=== PATIENT | female | born 1990 | race Caucasian/White ===

== ENCOUNTER 2017-10-17 06:25 | Outpatient (CLI) | payer OTHER ==
[~2017-10-17] VITALS: Ht 172.7 cm; Wt 57.6 kg
[~2017-10-17 06:25] MED LIST: METR500T PO; SPRINTEC PO; [UNRECOGNIZED DRUG - OTHER] RC
[2017-10-17] MEDS ORDERED: POST NATAL VITAMIN PO (13:09)
[2017-10-17] MEDS ORDERED: CHOL100045 PO (13:09)
[2017-10-21] MEDS ORDERED: NITR1OIN TP (09:41)
== END 2017-10-17 13:17 ==
LOC: PREOP 06:25
PROVIDERS: ATTEND Surgery
DX: Z01.818 Encounter for other preprocedural examination (principal); K62.5 Hemorrhage of anus and rectum; K62.89 Other specified diseases of anus and rectum; Z80.0 Family history of malignant neoplasm of digestive organs; Z83.71 Family history of colonic polyps

== ENCOUNTER → 2019-02-01 | Outpatient (CLI) | payer OTHER ==
[~2019-02-01] MED LIST changes: +CHOL100045 PO; +NITR1OIN TP; +POST NATAL VITAMIN PO
--- NOTE | 2019-02-01 13:11 | Diagnostic Imaging Report ---
INDICATION: Anatomy scan. TECHNIQUE: Multiple real-time grayscale images were obtained over the gravid uterus. COMPARISON: None FINDINGS: There is a single live fetus in a cephalic presentation. heart rate was recorded 147 beats per minute. The placenta is anterior. Amniotic fluid volume is normal. Cervical length is 3.4 cm. survey demonstrates kidneys, bladder, and stomach to be unremarkable. The brain is unremarkable. There is a four-chambered heart. There is a three-vessel cord with normal insertion. spine is unremarkable. Biometrical measurements are as follows: Biparietal 4.84 cm, age 20 weeks 5 days. Head circumference 17.93 cm, age 20 weeks 3 days. Abdominal circumference 15.60 cm, age 20 weeks 6 days. Femur length 3.56 cm, age 21 weeks 2 days. Sonographic estimate age: 20 weeks 6 days. Sonographic estimated date of delivery: 06/15/2019. Estimated Weight: 386 gm (+/- 56 gm). LMP percentile: 86%. heart rate: 147 beats per minute. number: 1 of 1. IMPRESSION: Single live IUP 20 weeks 6 days gestational age. Estimated date of confinement sonographically is 06/15/2019. Dictated by: Dictated on workstation # [id number]
== END ==
LOC: RAD 10:21
PROVIDERS: ATTEND Obstetrics & Gynecology
DX: Z34.92 Encounter for supervision of normal pregnancy, unspecified, second trimester (principal); Z3A.20 20 weeks gestation of pregnancy
CPT/HCPCS: 76805

== ENCOUNTER 2019-06-19 02:13 | Inpatient (IN) | payer OTHER ==
[~2019-06-19] VITALS: Ht 172.7 cm; Wt 74.5 kg
[2019-06-19] VITALS (14 sets, daily range): BP systolic 113–145; BP diastolic 59–86
--- NOTE | 2019-06-19 02:30 | NUR ---
NORMAN DEAN presented to unit via ambulatory from ED, accompanied by s/o, with c/o CONTRACTIONS,PRESSURE 36 6/7. NORMAN DEAN weighed, gowned, voided, and to bed. EFHM and TOCO applied, VS taken. NORMAN DEAN oriented to bed controls, call light, TV, heat, and A/C controls.
[2019-06-19] MEDS ORDERED: D5 LR IV SOLUTION 1,000 ML IV ONE (02:42)
[2019-06-19] MEDS ORDERED: D5 LR IV SOLUTION 1,000 ML IV SCH (02:57)
[2019-06-19] MEDS ORDERED: OXYTOCIN/NORMAL SALINE 500 ML IV ONE (03:05)
[2019-06-19] MEDS ORDERED: LIDOCAINE/EPI 2% 1:200,00 (XYLOCAINE) 10 ML VIAL ONE (03:05)
[2019-06-19 03:11] LABS: BASOPHILS % (AUTO) 0 % (0-10); EOSINOPHILS # (AUTO) 0.1 10^3/uL (0.0-0.3); EOSINOPHILS % (AUTO) 1 % (0-10); HEMATOCRIT 34 % (35-52); HEMOGLOBIN 11.5 G/DL (11.5-16.0); LYMPHOCYTES # (AUTO) 2.3 X 10^3 (1.0-4.0); LYMPHOCYTES % (AUTO) 25 % (12-44); MEAN CORPUSCULAR HEMOGLOBIN 30 PG (25-34); MEAN CORPUSCULAR HGB CONC 34 G/DL (32-36); MEAN CORPUSCULAR VOLUME 87 FL (80-99); MEAN PLATELET VOLUME 12.2 FL (7.4-10.4); MONOCYTES % (AUTO) 11 % (0-12); NEUTROPHILS # (AUTO) 5.9 X 10^3 (1.8-7.8); NEUTROPHILS % (AUTO) 64 % (42-75); PLATELET COUNT 151 10^3/uL (130-400); WHITE BLOOD COUNT 9.2 10^3/uL (4.3-11.0)
[2019-06-19] MEDS: OXYTOCIN/NORMAL SALINE 500 ML IV SCH ×2 (03:45→04:15)
[2019-06-19] MEDS ORDERED: TETANUS,DIPTH,PERTUSS P/F (BOOSTRIX) 0.5 ML VIAL IM ONE (04:00)
[2019-06-19] MEDS ORDERED: WITCH HAZEL(TUCKS) 40 EA JAR TOP PRN (04:00)
[2019-06-19] MEDS ORDERED: MEASLES,MUMPS,RUBELLA 1 EA INJ SQ ONE (04:00)
[2019-06-19] MEDS ORDERED: BENZOCAINE/MENTHOL (DERMOPLAST) 56 ML CAN TP PRN (04:00)
[2019-06-19] MEDS ORDERED: DIBUCAINE (NUPERCAINAL) 1% OINT 30 GM TOP PRN (04:00)
--- NOTE | 2019-06-19 04:00 | OB Labor & Delivery Record ---
L&D History Date of Service Date of Service: Jun 19, 2019 History Expected Date of Delivery: Jun 20, 2019 Gestational Age in Weeks: 39 Complications Events: Routine care Operative Indications (Cesarea: N/A-Vaginal Delivery Intrapartal Events: None L&D Stage1 Stage One Onset of Labor - Date: Jun 19, 2019 Monitors and Tracing Monitor Mode: External Heart Rate: 130 Station: -1 Correction Variability: Average (6-10) Short Term Variability: Present Presentation: Vertex Vital Signs VS - Last 72 Hours, by Label POS 06/19/19 03:16 Temp 36.4 Pulse 93 Resp 18 Pulse Ox 99 O2 Delivery Room Air Rupture of Membranes Spontaneous Ruture of Membrane: No Amniotic Membrane Rupture Time: 03:15 Amniotic Membrane Fluid Desc.: Clear Vaginal Bleeding Description: Normal Show Progress/Notes patient presented in active labor progressed to complete and + 2 station after AROM performed after admission and patient found to be 8 cm L&D Stage2 Stage Two Stage II Date: Jun 19, 2019 Monitors and Tracing Monitor Mode: External Heart Rate: 130 Monitor Decelerations: Early Siderographist Variability: Average (6-10) Short Term Variability: Present Position: Right Occiput Anterior Presentation: Vertex Cord Descript/Complications Cord Vessel Description: 3 Vessels Delivery Type Delivery Method: Spontaneous Vaginal Anterior Shoulder: Right Episiotomy/Perineal Laceration Laceraction(s)/Extensions: Yes Episiotomy Description: Perineal Extension/lac Degree (describe repair) 2nd degree perineal laceration repaired using 3-0 and 2-0 vicryl suture in usual fashion Condition of Infant Delivery 1 minute Comment: 9 5 minute Comment: 9 Notes Live male weight 8lbs 13 oz Condition of Condition of Infant: Living Exam: No Observed Abnormalities Resuscitation Resuscitation: N/A - Spontaneous Resp L&D Stage3 Stage Three Stage III Date: Jun 19, 2019 Pictocin Pitocin Administration Comment: 30 mu wide open Placenta Delivery Placenta Delivery: Spontaneous Delivery Summary Summary Estimated blood loss (mL): 250 Attending at delivery: Robi Razo DO Condition of Delivery Examined: Cervix Examined, Uterus Explored Post Hemorrhage: No Condition of Mother stable Condition of Infant (s) stable ROBI RAZO DO Jun 19, 2019 04:00 POS
--- NOTE | 2019-06-19 04:03 | History & Physical-OB ---
OB - Chief Complaint & HPI Date/Time Date of Admission: Date of Admission: Jun 19, 2019 at 02:43 Date seen by a Provider: Jun 19, 2019 Time Seen by a Provider: 03:15 Chief Complaint/History OB-Reason for Admission/Chief: Onset of Labor Hx : 3 Hx Para: 1 Expected Date of Delivery: Jun 20, 2019 Gestational Age in Weeks: 39 Gestational Age in Days: 6 Admission Nurse Assessment Rev: Yes Allergies and Home Medications Allergies Coded Allergies: No Known Drug Allergies (Unverified , 02/19/13) Home Medications Cholecalciferol (Vitamin D3) 1,000 Unit Tablet, 1,000 UNIT PO DAILY, (Reported) Nitroglycerin 1 Gm Oint...g., 0.5 GM TP BID APPLY TO ANAL MARGIN TWICE A DAY. Prescribed by: GRACIELA SPAULDING on 10/21/17 0941 [Post Vitamin] , 1 TAB PO DAILY, (Reported) Patient Home Medication List Home Medication List Reviewed: Yes OB - History Hx of Present Care: Yes Ultrasounds: Normal mid trimester US Obstetrical Complications: None Medical Complications: None Delivery History Hx Blood Disorders: No Patient Past Medical History n/a Social History/Family History Recent Infectious Disease Expo: No Alcohol Use: Denies Use Recreational Drug Use: No Immunizations Tetanus Booster (TDap): Unknown Date of Influenza Vaccine: Apr 09, 2019 OB - Admission Exam Physical Exam Vitals: Vital Signs 06/19/19 03:16 Temp 36.4 Pulse 93 Resp 18 Pulse Ox 99 O2 Delivery Room Air HEENT: NCAT Heart: Rhythm Normal Lungs: Clear Abdomen: Gravid Extremities: Normal Reflexes: Normal Cervical Dilatation: 8cm Effacement: 100% Station: -1 Membranes: Intact Heart Rate: 130's Accelerations: Accelerations Present Decelerations: No Decelerations Short Term Variability: Present Filter Cleaner Variability: Average (6-25) Contractions on Admission: < 5 Minutes Apart Intensity: Firm Labs Laboratory Tests Test 06/19/19 02:50 Range/Units White Blood Count 9.2 4.3-11.0 10^3/uL Red Blood Count 3.88 L 4.35-5.85 10^6/uL Hemoglobin 11.5 11.5-16.0 G/DL Hematocrit 34 L 35-52 % Mean Corpuscular Volume 87 80-99 FL Mean Corpuscular Hemoglobin 30 25-34 PG Mean Corpuscular Hemoglobin Concent 34 32-36 G/DL Red Cell Distribution Width 13.0 10.0-14.5 % Platelet Count 151 130-400 10^3/uL Mean Platelet Volume 12.2 H 7.4-10.4 FL Neutrophils (%) (Auto) 64 42-75 % Lymphocytes (%) (Auto) 25 12-44 % Monocytes (%) (Auto) 11 0-12 % Eosinophils (%) (Auto) 1 0-10 % Basophils (%) (Auto) 0 0-10 % Neutrophils # (Auto) 5.9 1.8-7.8 X 10^3 Lymphocytes # (Auto) 2.3 1.0-4.0 X 10^3 Monocytes # (Auto) 1.0 0.0-1.0 X 10^3 Eosinophils # (Auto) 0.1 0.0-0.3 10^3/uL Basophils # (Auto) 0.0 0.0-0.1 10^3/uL OB - Assessment/Plan/Diagnosis Assessment Assessment: active labor Admission Dx 28 yo @ 39.6 Active labor GBS neg Admission Status: Inpatient Order (span 2 midnights) Reason for Inpatient Admission: Active labor at term Plan Plan: Expectant Management ROBI RAZO DO Jun 19, 2019 04:02 POS
--- NOTE | 2019-06-19 05:30 | NUR ---
pad and panties changed. ff1 below. light rubra. gown changed. pt assisted to w'c and tx to room 311. pt ambulated to the bathroom. positive void. pericare completed. pt assisted to bed. orientated to room. info papers discussed. s/o remains at bedside. pt denies any needs at this time.
[2019-06-19] MEDS: IBUPROFEN 600 MG (MOTRIN) TAB PO SCH ×3 (05:32→17:54)
[2019-06-19] MEDS ORDERED: CATHETER FLUSH 10 ML SYR IV SCH ×2 (06:00)
--- NOTE | 2019-06-19 09:30 | NUR ---
DOING WELL. VSS. FF U/2. VAG FLOW LT /MOD RUBRA. VOIDING WELL. CARING FOR INFANT IN ROOM. WELL. S.O. AT BEDSIDE.
[2019-06-19] MEDS: PRENATAL VITAMIN 1 EA TAB PO SCH (10:01)
[2019-06-19] MEDS: FERROUS SULF 325 MG (IRON) TAB PO SCH (10:01)
[2019-06-19] MEDS: DOCUSATE SODIUM 100 MG (COLACE) CAP PO SCH (10:01)
--- NOTE | 2019-06-19 11:00 | NUR ---
WARM BLANKET TO ABDOMEN PRN C/O CRAMPING.
--- NOTE | 2019-06-19 12:00 | NUR ---
CONTINUES TO DO WELL. CARING FOR INFANT IN ROOM WITH FAMILY AT BEDSIDE. GOOD INTERACTION NOTED. ICE PACK FRESHENED PRN.
--- NOTE | 2019-06-19 14:00 | NUR ---
RESTING AT INTERVALS. OFFERS NO COMPLAINTS.
[2019-06-19] MEDS: HYDROcodone/APAP 5 MG/325 MG (LORTAB) TAB PO PRN ×2 (17:55→22:09)
--- NOTE | 2019-06-19 18:00 | NUR ---
PCT TO ROOM AND NOTED PT STANDING UP AND SHAKING. ASSISTED BACK TO BED. VSS. PT STATES SHE FELT COLD AND SHAKEY. STATES POSSIBLY GOT UP OUT OF BED TOO QUICKLY. INSTRUCTED TO SIT AT SIDE OF BED FOR A MINUTE OR SO BEFORE STANDING. PT HAS HAD MANY VISITORS AND HAS BEEN IN BED MOST OF THE SHIFT. ENCOURAGED AMBULATION MORE FREQUENTLY. S.O. REMAINS AT BEDSIDE.
--- NOTE | 2019-06-19 18:45 | NUR ---
ORDERED STORK MEAL. DIETARY CALLED TO CHECK ON ARRIVAL TIME.
[2019-06-20 00:12] VITALS: BP 103/58
[2019-06-20] MEDS: IBUPROFEN 600 MG (MOTRIN) TAB PO SCH ×3 (00:12→11:47)
[2019-06-20 05:56] VITALS: BP 101/61
[2019-06-20 06:26] LABS: BASOPHILS % (AUTO) 0 % (0-10); EOSINOPHILS # (AUTO) 0.2 10^3/uL (0.0-0.3); EOSINOPHILS % (AUTO) 1 % (0-10); HEMATOCRIT 33 % (35-52); HEMOGLOBIN 10.7 G/DL (11.5-16.0); LYMPHOCYTES # (AUTO) 3.1 X 10^3 (1.0-4.0); LYMPHOCYTES % (AUTO) 25 % (12-44); MEAN CORPUSCULAR HEMOGLOBIN 29 PG (25-34); MEAN CORPUSCULAR HGB CONC 33 G/DL (32-36); MEAN CORPUSCULAR VOLUME 90 FL (80-99); MEAN PLATELET VOLUME 12.4 FL (7.4-10.4); MONOCYTES # (AUTO) 1.2 X 10^3 (0.0-1.0); MONOCYTES % (AUTO) 10 % (0-12); NEUTROPHILS # (AUTO) 7.9 X 10^3 (1.8-7.8); NEUTROPHILS % (AUTO) 64 % (42-75); PLATELET COUNT 146 10^3/uL (130-400); RED CELL DISTRIBUTION WIDTH 13.2 % (10.0-14.5); WHITE BLOOD COUNT 12.4 10^3/uL (4.3-11.0)
--- NOTE | 2019-06-20 08:00 | NUR ---
A.M. ASSESSMENT COMPLETED. VSS. CARING FOR IN ROOM.
--- NOTE | 2019-06-20 08:10 | NUR ---
DR. RAZO AND DR. NEWSOME IN ROOM TO SEE PT. AND .
[2019-06-20 08:15] VITALS: BP 113/66
--- NOTE | 2019-06-20 08:22 | Postpartum Progress Note ---
Note Note Day # 1 Subjective: Patient is without complaints. Ambulating, voiding. Tolerating a regular diet without nausea or vomiting. Normal lochia. Pain is well controlled with oral pain medications. Objective: Physical Exam: General - Alert and oriented, no apparent distress Abdomen - Soft, appropriately tender to palpation, non-distended, fundus firm at umbilicus Extremities - no edema, negative Umer's bilaterally Assessment: PPD 1 NVD Acute blood loss anemia Plan: Routine care. Encourage breast feeding. Encourage ambulation. Ferrous sulfate supplementation. Plan for discharge today Vitals - Labs Vital Signs - I&O Vital Signs Date Time Temp Pulse Resp B/P (MAP) Pulse Ox O2 Delivery O2 Flow Rate FiO2 06/20/19 05:56 36.8 64 16 101/61 (74) 97 Room Air 06/20/19 00:12 36.6 66 16 103/58 (73) 97 Room Air 06/19/19 19:45 37.1 73 16 124/74 (91) 98 Room Air 06/19/19 18:05 36.9 66 16 125/71 (89) 98 Room Air 06/19/19 16:00 36.7 74 18 113/59 (77) 97 Room Air 06/19/19 12:30 37.2 74 18 132/75 (94) 97 Room Air 06/19/19 09:30 37.0 75 18 130/66 (87) 97 Room Air Labs Laboratory Tests 06/20/19 05:44: White Blood Count 12.4H, Red Blood Count 3.65L, Hemoglobin 10.7L, Hematocrit 33L , Mean Corpuscular Volume 90, Mean Corpuscular Hemoglobin 29, Mean Corpuscular Hemoglobin Concent 33, Red Cell Distribution Width 13.2, Platelet Count 146, Mean Platelet Volume 12.4H, Neutrophils (%) (Auto) 64, Lymphocytes (%) (Auto) 25, Monocytes (%) (Auto) 10, Eosinophils (%) (Auto) 1, Basophils (%) (Auto) 0, Neutrophils # (Auto) 7.9H, Lymphocytes # (Auto) 3.1, Monocytes # (Auto) 1.2H, Eosinophils # (Auto) 0.2, Basophils # (Auto) 0.0 ROBI RAZO DO Jun 20, 2019 08:22
[2019-06-20] MEDS ORDERED: IBUP-844 PO (08:27)
[2019-06-20] MEDS ORDERED: Benzocaine/Menthol TP (08:27)
[2019-06-20] MEDS ORDERED: FERR325T18 PO (08:27)
[2019-06-20] MEDS ORDERED: ACHD5005 PO (08:27)
[2019-06-20] MEDS ORDERED: DOCU100C37 PO (08:27)
--- NOTE | 2019-06-20 08:28 | Discharge Inst-Women's Service ---
Discharge Inst-Women's Serv Depart Medication/Instructions New, Converted or Re-Newed RX: RX on Chart Problems Reviewed?: Yes Consults/Follow Up Additional Follow Up: Yes Activity Activity: Activity as Tolerated Driving Instructions: No Driving for 1 Week NO SMOKING: NO SMOKING Nothing Inside Vagina: No Douching, No [place], No Tampons Diet Discharge Diet: No Restrictions Symptoms to Report to : Bleeding Excessive, Pain Increased, Fever Over 101 Degrees F, Vaginal Bleeding Increase, Questions/Concerns For Any Problems or Questions: Contact Your Physician ROBI RAZO DO Jun 20, 2019 08:28
--- NOTE | 2019-06-20 10:15 | NUR ---
CONTINUES TO CARE FOR IN ROOM. WELL.
[2019-06-20] MEDS: FERROUS SULF 325 MG (IRON) TAB PO SCH (10:52)
[2019-06-20] MEDS: DOCUSATE SODIUM 100 MG (COLACE) CAP PO SCH (10:52)
[2019-06-20] MEDS: PRENATAL VITAMIN 1 EA TAB PO SCH (10:52)
--- NOTE | 2019-06-20 11:58 | NUR ---
RHOGAM GIVEN. SEE INTERVENTION.
--- NOTE | 2019-06-20 12:00 | NUR ---
DISCHARGE INSTRUCTIONS REVIEWED WITH COPY TO PT. RXS GIVEN. STATES UNDERSTANDING OF ALL INSTRUCTIONS AND NEED TO F/U SCHEDULED AND NEEDED.
[2019-06-20 12:20] VITALS: BP 113/66
--- NOTE | 2019-06-20 12:20 | NUR ---
DISMISSED AMB FROM [facility] WITH IN STABLE CONDITION TO FAMILY CAR [facility] BY SPOUSE AND DARIA RICKS.
== END 2019-06-20 12:20 | disposition home or self-care (01) | DRG 806 ==
LOC: WSo 02:13 → LDRP 02:14 → WSo 02:43 → LDRP 02:43
PROVIDERS: ADMIT Obstetrics & Gynecology; ATTEND Obstetrics & Gynecology
PROC: 10E0XZZ Delivery of Products of Conception, External Approach (ICD-10-PCS; principal; 2019-06-19)
PROC: 0KQM0ZZ Repair Perineum Muscle, Open Approach (ICD-10-PCS; 2019-06-19)
PROC: 0W8NXZZ Division of Female Perineum, External Approach (ICD-10-PCS; 2019-06-19)
DX: O70.1 Second degree perineal laceration during delivery (principal); O90.81 Anemia of the puerperium; D62 Acute posthemorrhagic anemia; Z3A.39 39 weeks gestation of pregnancy; Z37.0 Single live birth
CPT/HCPCS: 36415; 83033; 85025; 86850; 86900; 86901; 99212

== ENCOUNTER 2021-04-29 11:49 | Inpatient (IN) | payer BC ==
[~2021-04-29] VITALS: Ht 168 cm; Wt 79.0 kg
[2021-04-29] VITALS (23 sets, daily range): BP systolic 108–161; BP diastolic 54–94
[~2021-04-29 11:49] MED LIST changes: +ACHD5005 PO; +Benzocaine/Menthol TP; +DOCU100C37 PO; +FERR325T18 PO; +IBUP-844 PO
[2021-04-29] MEDS ORDERED: D5 LR IV SOLUTION 1,000 ML IV ONE (12:23)
[2021-04-29] MEDS ORDERED: D5 LR IV SOLUTION 1,000 ML IV SCH (12:30)
[2021-04-29] MEDS ORDERED: LIDOCAINE/EPI 2% 1:200,00 (XYLOCAINE) 20 ML VIAL INJ PRN (12:30)
[2021-04-29 12:46] LABS: BASOPHILS % (AUTO) 0 % (0-10); EOSINOPHILS # (AUTO) 0.1 10^3/uL (0.0-0.3); EOSINOPHILS % (AUTO) 1 % (0-10); HEMATOCRIT 36 % (35-52); HEMOGLOBIN 11.9 g/dL (11.5-16.0); LYMPHOCYTES # (AUTO) 2.1 10^3/uL (1.0-4.0); LYMPHOCYTES % (AUTO) 21 % (12-44); MEAN CORPUSCULAR HEMOGLOBIN 30 pg (25-34); MEAN CORPUSCULAR HGB CONC 33 g/dL (32-36); MEAN CORPUSCULAR VOLUME 91 fL (80-99); MEAN PLATELET VOLUME 12.8 fL (9.0-12.2); MONOCYTES # (AUTO) 0.9 10^3/uL (0.0-1.0); MONOCYTES % (AUTO) 9 % (0-12); NEUTROPHILS # (AUTO) 6.7 10^3/uL (1.8-7.8); NEUTROPHILS % (AUTO) 66 % (42-75); PLATELET COUNT 150 10^3/uL (130-400); WHITE BLOOD COUNT 10.1 10^3/uL (4.3-11.0)
[2021-04-29 12:49] LABS: BILIRUBIN,URINE NEGATIVE (NEGATIVE); CLARITY,URINE CLEAR; COLOR,URINE YELLOW; GLUCOSE, URINE (UA) NEGATIVE (NEGATIVE); KETONES,URINE NEGATIVE (NEGATIVE); LEUKOCYTE ESTERASE ,URINE NEGATIVE (NEGATIVE); NITRITE,URINE NEGATIVE (NEGATIVE); PH,URINE 6.5 (5-9); PROTEIN,URINE NEGATIVE (NEGATIVE)
[2021-04-29 13:11] LABS: RBC,URINE 0-2 /HPF
[2021-04-29 13:12] LABS: BACTERIA,URINE TRACE /HPF; WBC,URINE 0-2 /HPF
--- NOTE | 2021-04-29 14:43 | History & Physical-OB ---
OB - Chief Complaint & HPI Date/Time Date of Admission: Date of Admission: Apr 29, 2021 at 11:49 am Date seen by a Provider: Apr 29, 2021 Time Seen by a Provider: 09:00 Chief Complaint/History OB-Reason for Admission/Chief: Induction of Labor Hx : 4 Hx Para: 2 Expected Date of Delivery: Apr 26, 2021 Gestational Age in Weeks: 40 Gestational Age in Days: 3 Other reason for admission: Patient sent from office for non-reactive NST. Post dates for induction. Admission Nurse Assessment Rev: Yes History of Labs A neg Antibody neg RI RPR NR HBsAg NR HIV NR GC neg GBS neg Allergies and Home Medications Allergies Coded Allergies: No Known Drug Allergies (Unverified , 02/19/13) Patient Home Medication List Home Medication List Reviewed: Yes Cholecalciferol (Vitamin D3) (Vitamin D) 1,000 Unit Tablet, 1,000 UNIT PO DAILY, (Reported) Entered as Reported by: CHRIS LANDRY on 10/17/17 638 Docusate Sodium (Docusate Sodium) 100 Mg Capsule, 100 MG PO BID Prescribed by: ROBI RAZO on 06/20/19826 Ferrous Sulfate (Ferrous Sulfate) 325 Mg Tablet, 325 MG PO DAILY Prescribed by: ROBI RAZO on 06/20/19826 Hydrocodone Bit/Acetaminophen (Lortab 5 Mg Tablet) 1 Tab Tab, 1 TAB PO Q4H PRN for PAIN-MODERATE (5-7) Prescribed by: ROBI RAZO on 06/20/19826 Ibuprofen (Ibu) 600 Mg Tablet, 600 MG PO Q6HR Prescribed by: ROBI RAZO on 06/20/19826 [Benzocaine/Menthol] 56 ML AEROSOL, 56 ML TP UD PRN for PAIN- SEE INSTRUCTIONS Prescribed by: ROBI RAZO on 06/20/19826 [[place] Vitamin] , 1 TAB PO DAILY, (Reported) Entered as Reported by: CHRIS LANDRY on 10/17/17 5317 OB - History Hx of Present Care: Yes Ultrasounds: Normal mid trimester US Obstetrical Complications: None Medical Complications: None Delivery History Hx Blood Disorders: No Patient Past Medical History n/a Immunizations Hepatitis A: No Hepatitis B: No Tetanus Booster (TDap): Unknown Date of Influenza Vaccine: Apr 09, 2019 OB - Admission Exam Physical Exam HEENT: NCAT Heart: Rhythm Normal Lungs: Clear Abdomen: Gravid Extremities: Normal Reflexes: Normal Cervical Dilatation: 3cm Effacement: 75% Station: -1 Membranes: Intact Heart Rate: 130's Accelerations: Accelerations Present Decelerations: No Decelerations Short Term Variability: Present Intermediate Variability: Average (6-25) Contractions on Admission: 6-10 Minutes Apart Intensity: Mild Rodriguez Scoring Tool (Modified) Dilation (cm): 3-4cm (2) Effacement (%): 51-79% (2) Descent/Station: -1,0 (2) Cervix Consistency: Soft (2) Cervix Position: Anterior (2) Add 1 point for: Each previous vaginal delivery (1) Rodriguez Score: 12 Labs Laboratory Tests Test 04/29/21 12:00 04/29/21 12:10 Range/Units Urine Color YELLOW Urine Clarity CLEAR Urine pH 6.5 5-9 Urine Specific [place] 1.010 L 1.016-1.022 Urine Protein NEGATIVE NEGATIVE Urine Glucose (UA) NEGATIVE NEGATIVE Urine Ketones NEGATIVE NEGATIVE Urine Nitrite NEGATIVE NEGATIVE Urine Bilirubin NEGATIVE NEGATIVE Urine Urobilinogen 0.2 < = 1.0 MG/DL Urine Leukocyte Esterase NEGATIVE NEGATIVE Urine RBC (Auto) 1+ H NEGATIVE Urine RBC 0-2 /HPF Urine WBC 0-2 /HPF Urine Squamous Epithelial Cells 2-5 /HPF Urine Crystals NONE /LPF Urine Bacteria TRACE /HPF Urine Casts NONE /LPF Urine Mucus NEGATIVE /LPF Urine Culture Indicated NO White Blood Count 10.1 4.3-11.0 10^3/uL Red Blood Count 3.95 3.80-5.11 10^6/uL Hemoglobin 11.9 11.5-16.0 g/dL Hematocrit 36 35-52 % Mean Corpuscular Volume 91 80-99 fL Mean Corpuscular Hemoglobin 30 25-34 pg Mean Corpuscular Hemoglobin Concent 33 32-36 g/dL Red Cell Distribution Width 12.8 10.0-14.5 % Platelet Count 150 130-400 10^3/uL Mean Platelet Volume 12.8 H 9.0-12.2 fL Immature Granulocyte % (Auto) 3 % Neutrophils (%) (Auto) 66 42-75 % Lymphocytes (%) (Auto) 21 12-44 % Monocytes (%) (Auto) 9 0-12 % Eosinophils (%) (Auto) 1 0-10 % Basophils (%) (Auto) 0 0-10 % Neutrophils # (Auto) 6.7 1.8-7.8 10^3/uL Lymphocytes # (Auto) 2.1 1.0-4.0 10^3/uL Monocytes # (Auto) 0.9 0.0-1.0 10^3/uL Eosinophils # (Auto) 0.1 0.0-0.3 10^3/uL Basophils # (Auto) 0.0 0.0-0.1 10^3/uL Immature Granulocyte # (Auto) 0.3 H 0.0-0.1 10^3/uL OB - Assessment/Plan/Diagnosis Assessment Assessment: induction of labor Admission Dx 30 yo @ 40.3 Postdates Nonreactive NST GBS neg Admission Status: Inpatient Order (span 2 midnights) Reason for Inpatient Admission: IOL at 40 weeks Plan Plan: Induction Induction Method: ROBI BURCH DO Apr 29, 2021 2:43 pm
[2021-04-29] MEDS: CATHETER FLUSH 10 ML SYR IV SCH (15:27)
[2021-04-29] MEDS ORDERED: OXYTOCIN PRE-MIX DRIP 500 ML IV ONE (16:19)
[2021-04-29] MEDS ORDERED: OXYTOCIN PRE-MIX DRIP 500 ML IV SCH ×2 (16:30→19:45)
[2021-04-29] MEDS ORDERED: TETANUS,DIPTH,PERTUSS P/F (BOOSTRIX) 0.5 ML VIAL IM ONE (19:45)
[2021-04-29] MEDS ORDERED: NALOXONE 0.4 MG/ML 1 ML (NARCAN) VIAL IV PRN (19:45)
[2021-04-29] MEDS ORDERED: MEASLES,MUMPS,RUBELLA 1 EA INJ SQ ONE (19:45)
[2021-04-29] MEDS ORDERED: DIBUCAINE 1% OINTMENT 30 GM TUBE TOP PRN (19:45)
[2021-04-29] MEDS ORDERED: WITCH HAZEL(TUCKS) 40 EA JAR TOP PRN (19:45)
[2021-04-29] MEDS ORDERED: BENZOCAINE/MENTHOL (DERMOPLAST) 56 ML CAN TP PRN (19:45)
--- NOTE | 2021-04-29 19:52 | OB Labor & Delivery Record ---
L&D History Date of Service Date of Service: Apr 29, 2021 History Expected Date of Delivery: Apr 26, 2021 Gestational Age in Weeks: 40 Hx : 4 Hx Para: 2 Complications Events: Routine care Operative Indications (Cesarea: N/A-Vaginal Delivery Intrapartal Events: None L&D Stage1 Stage One Onset of Labor - Date: Apr 29, 2021 Monitors and Tracing Monitor Mode: External Heart Rate: 130 Station: -1 Longterm Variability: Average (6-10) Short Term Variability: Present Presentation: Vertex Vital Signs VS - Last 72 Hours, by Label 04/29/21 04/29/21 04/29/21 04/29/21 12:20 12:20 13:40 14:10 Temp 36.9 Pulse 84 84 100 83 Resp 18 18 18 18 B/P (MAP) 128/77 (94) 128/79 (95) 127/80 (96) Pulse Ox 97 97 O2 Delivery Room Air Room Air Room Air Room Air 04/29/21 14:40 Pulse 85 Resp 18 B/P (MAP) 116/72 (87) O2 Delivery Room Air Rupture of Membranes Spontaneous Ruture of Membrane: No Amniotic Membrane Rupture Time: 1305 Amniotic Membrane Fluid Desc.: Clear Vaginal Bleeding Description: Normal Show Progress/Notes Patient admitted after variable decel noted on nst in the office. Arom was performed at admission. Pitocin 2 mu was used due to dysfunctional contractions pattern. She progressed to complete and +2 station without any analgesia. L&D Stage2 Monitors and Tracing Monitor Mode: External Heart Rate: 130 Monitor Decelerations: Variable Pathology Supervisor Variability: Average (6-10) Short Term Variability: Present Position: Right Occiput Anterior Presentation: Vertex Cord Descript/Complications Cord Vessel Description: 3 Vessels Delivery Type Infant Delivery Method: Spontaneous Vaginal Anterior Shoulder: Left Episiotomy/Perineal Laceration Laceraction(s)/Extensions: Yes Episiotomy Description: Perineal Extension/lac, 2nd degree Degree (describe repair) 2nd degree perineal laceration reparied using 3-0 rapide in usual fashion Condition of Delivery 1 minute Comment: 9 5 minute Comment: 9 Notes Live female weight 8lbs 4 oz Condition of Infant Condition of : Living Exam: No Observed Abnormalities Resuscitation Resuscitation: N/A - Spontaneous Resp L&D Stage3 Stage Three Stage III Date: Apr 29, 2021 Pictocin Pitocin Administration Comment: 30 mu wide open after delivery of placenta Placenta Delivery Placenta Delivery: Spontaneous Delivery Summary Summary Estimated blood loss (mL): 350 Attending at delivery: Robi Razo DO Condition of Delivery Examined: Cervix Examined, Uterus Explored Post Hemorrhage: No Condition of Mother stable Condition of (s) stable ROBI RAZO DO Apr 29, 2021 19:52
[2021-04-29] MEDS ORDERED: ONDANSETRON 4 MG/2 ML (SDV) Z0FRAN ONE (20:18)
[2021-04-29] MEDS ORDERED: IBUPROFEN 600 MG (MOTRIN) TAB PO ONE (21:22)
[2021-04-29] MEDS: DOCUSATE SODIUM 100 MG (COLACE) CAP PO SCH (21:24)
[2021-04-29] MEDS: IBUPROFEN 600 MG (MOTRIN) TAB PO SCH (21:24)
[2021-04-29] MEDS ORDERED: CATHETER FLUSH 10 ML SYR IV SCH (22:00)
[2021-04-30 01:15] VITALS: BP 126/63
[2021-04-30] MEDS ORDERED: ONDANSETRON 4 MG/2 ML (SDV) Z0FRAN IVP ONE (01:30)
[2021-04-30] MEDS: CATHETER FLUSH 10 ML SYR IV SCH (03:58)
[2021-04-30] MEDS ORDERED: IBUPROFEN 600 MG (MOTRIN) TAB PO ONE (04:08)
[2021-04-30 04:09] VITALS: BP 128/65
[2021-04-30] MEDS: IBUPROFEN 600 MG (MOTRIN) TAB PO SCH ×3 (04:09→15:51)
[2021-04-30] MEDS: HYDROcodone/APAP 5 MG/325 MG (LORTAB) TAB PO PRN ×2 (06:36→12:18)
[2021-04-30] MEDS ORDERED: PRENATAL VITAMIN 1 EA TAB PO SCH (07:00)
[2021-04-30 07:18] LABS: BASOPHILS % (AUTO) 0 % (0-10); EOSINOPHILS % (AUTO) 0 % (0-10); HEMATOCRIT 32 % (35-52); HEMOGLOBIN 10.5 g/dL (11.5-16.0); LYMPHOCYTES # (AUTO) 2.1 10^3/uL (1.0-4.0); LYMPHOCYTES % (AUTO) 20 % (12-44); MEAN CORPUSCULAR HEMOGLOBIN 30 pg (25-34); MEAN CORPUSCULAR HGB CONC 33 g/dL (32-36); MEAN CORPUSCULAR VOLUME 92 fL (80-99); MEAN PLATELET VOLUME 12.8 fL (9.0-12.2); MONOCYTES # (AUTO) 0.9 10^3/uL (0.0-1.0); MONOCYTES % (AUTO) 9 % (0-12); NEUTROPHILS # (AUTO) 7.3 10^3/uL (1.8-7.8); NEUTROPHILS % (AUTO) 69 % (42-75); PLATELET COUNT 141 10^3/uL (130-400); WHITE BLOOD COUNT 10.6 10^3/uL (4.3-11.0)
[2021-04-30 08:10] VITALS: BP 129/69
[2021-04-30] MEDS: DOCUSATE SODIUM 100 MG (COLACE) CAP PO SCH (08:38)
[2021-04-30] MEDS ORDERED: FERROUS SULF 325 MG (IRON) TAB PO SCH (09:00)
--- NOTE | 2021-04-30 10:01 | Postpartum Progress Note ---
Note Note Day # 1 Subjective: Patient is without complaints. Ambulating, voiding. Tolerating a regular diet without nausea or vomiting. Normal lochia. Pain is well controlled with oral pain medications. Breast feeding. Objective: Physical Exam: General - Alert and oriented, no apparent distress Abdomen - Soft, appropriately tender to palpation, non-distended, fundus firm at umbilicus Extremities - no edema, negative Umer's bilaterally Assessment: Post- day # 1, status post vaginal delivery. Recovering well, hemodynamically stable Acute blood loss anemia Plan: Routine care. Encourage breast feeding. Encourage ambulation. Ferrous sulfate supplementation. Plan for discharge this evening Vitals - Labs Vital Signs - I&O Vital Signs Date Time Temp Pulse Resp B/P (MAP) Pulse Ox O2 Delivery O2 Flow Rate FiO2 04/30/21 04:09 36.2 96 18 128/65 (86) 98 Room Air 04/30/21 01:15 36.7 80 18 126/63 (84) 98 Room Air 04/29/21 21:13 36.8 77 18 143/75 (97) Room Air 04/29/21 20:09 81 18 147/88 (107) Room Air 04/29/21 20:06 82 18 153/91 (111) Room Air 04/29/21 19:51 78 18 143/85 (104) Room Air 04/29/21 19:36 36.7 80 18 146/89 (108) Room Air 04/29/21 19:21 85 18 149/85 (106) Room Air 04/29/21 19:06 37.2 82 18 149/94 (112) Room Air 04/29/21 18:45 90 18 127/84 (98) Room Air 04/29/21 18:30 90 18 161/84 (109) Room Air 04/29/21 18:15 81 18 128/86 (100) Room Air 04/29/21 18:00 85 18 123/82 (96) Room Air 04/29/21 17:45 83 18 135/84 (101) Room Air 04/29/21 17:30 83 18 129/80 (96) Room Air 04/29/21 17:15 86 18 116/75 (89) Room Air 04/29/21 17:00 93 18 120/73 (89) Room Air 04/29/21 16:45 97 18 129/79 (96) Room Air 04/29/21 16:25 37.4 90 18 134/83 (100) Room Air 04/29/21 15:40 90 18 122/71 (88) Room Air 04/29/21 15:10 72 18 108/54 (72) Room Air 04/29/21 15:10 36.9 04/29/21 14:40 85 18 116/72 (87) Room Air 04/29/21 14:10 83 18 127/80 (96) Room Air 04/29/21 13:40 100 18 128/79 (95) Room Air 04/29/21 12:20 36.9 84 18 97 Room Air 04/29/21 12:20 84 18 128/77 (94) 97 Room Air Labs Laboratory Tests 04/29/21 12:00: Urine Color YELLOW, Urine Clarity CLEAR, Urine pH 6.5, Urine Specific [place] 1.010L, Urine Protein NEGATIVE, Urine Glucose (UA) NEGATIVE, Urine Ketones NEGATIVE, Urine Nitrite NEGATIVE, Urine Bilirubin NEGATIVE, Urine Urobilinogen 0.2, Urine Leukocyte Esterase NEGATIVE, Urine RBC (Auto) 1+H, Urine RBC 0-2, Urine WBC 0-2, Urine Squamous Epithelial Cells 2-5, Urine Crystals NONE, Urine Bacteria TRACE, Urine Casts NONE, Urine Mucus NEGATIVE, Urine Culture Indicated NO 04/29/21 12:10: White Blood Count 10.1, Red Blood Count 3.95, Hemoglobin 11.9, Hematocrit 36, Mean Corpuscular Volume 91, Mean Corpuscular Hemoglobin 30, Mean Corpuscular Hemoglobin Concent 33, Red Cell Distribution Width 12.8, Platelet Count 150, Mean Platelet Volume 12.8H, Immature Granulocyte % (Auto) 3, Neutrophils (%) (Auto) 66, Lymphocytes (%) (Auto) 21, Monocytes (%) (Auto) 9, Eosinophils (%) (Auto) 1, Basophils (%) (Auto) 0, Neutrophils # (Auto) 6.7, Lymphocytes # (Auto) 2.1, Monocytes # (Auto) 0.9, Eosinophils # (Auto) 0.1, Basophils # (Auto) 0.0, Immature Granulocyte # (Auto) 0.3H 04/30/21 06:04: White Blood Count 10.6, Red Blood Count 3.45L, Hemoglobin 10.5L, Hematocrit 32L, Mean Corpuscular Volume 92, Mean Corpuscular Hemoglobin 30, Mean Corpuscular Hemoglobin Concent 33, Red Cell Distribution Width 13.2, Platelet Count 141, Mean Platelet Volume 12.8H, Immature Granulocyte % (Auto) 2, Neutrophils (%) (Auto) 69, Lymphocytes (%) (Auto) 20, Monocytes (%) (Auto) 9, Eosinophils (%) (Auto) 0, Basophils (%) (Auto) 0, Neutrophils # (Auto) 7.3, Lymphocytes # (Auto) 2.1, Monocytes # (Auto) 0.9, Eosinophils # (Auto) 0.0, Basophils # (Auto) 0.0, Immature Granulocyte # (Auto) 0.2H KAT LINARES APRN Apr 30, 2021 10:01
[2021-04-30 12:30] VITALS: BP 128/66
--- NOTE | 2021-04-30 13:47 | Discharge Inst-Women's Service ---
Discharge Inst-Women's Serv Depart Medication/Instructions New, Converted or Re-Newed RX: RX on Chart Final Diagnosis PPD 1 NVD Problems Reviewed?: Yes Consults/Follow Up Additional Follow Up: Yes Orders/Referrals Dr. Razo in 6 weeks Activity Activity: Activity as Tolerated Driving Instructions: No Driving for 1 Week NO SMOKING: NO SMOKING Nothing Inside Vagina: No Douching, No [place], No Tampons Diet Discharge Diet: No Restrictions Symptoms to Report to : Bleeding Excessive, Pain Increased, Fever Over 101 Degrees F, Vaginal Bleeding Increase, Questions/Concerns For Any Problems or Questions: Contact Your Physician ROBI RAZO DO Apr 30, 2021 1:47 pm
[2021-04-30] MEDS ORDERED: DOCU100C37 PO (13:49)
[2021-04-30] MEDS ORDERED: BENZ78AE5 TP (13:49)
[2021-04-30] MEDS ORDERED: IBUP-844 PO (13:49)
[2021-04-30] MEDS ORDERED: DIBU30OI TOP (13:49)
[2021-04-30] MEDS ORDERED: ACHD5005 PO (13:49)
[2021-04-30 16:02] VITALS: BP 127/58
[2021-04-30 20:40] VITALS: BP 132/87
== END 2021-04-30 20:40 | disposition home or self-care (01) | DRG 806 ==
LOC: LDRP 11:49
PROVIDERS: ADMIT Obstetrics & Gynecology; ATTEND Obstetrics & Gynecology
PROC: 10E0XZZ Delivery of Products of Conception, External Approach (ICD-10-PCS; principal; 2021-04-29)
PROC: 0KQM0ZZ Repair Perineum Muscle, Open Approach (ICD-10-PCS; 2021-04-29)
PROC: 0W8NXZZ Division of Female Perineum, External Approach (ICD-10-PCS; 2021-04-29)
PROC: 10907ZC Drainage of Amniotic Fluid, Therapeutic from Products of Conception, Via Natural or Artificial Opening (ICD-10-PCS; 2021-04-29)
DX: O48.0 Post-term pregnancy (principal); D62 Acute posthemorrhagic anemia; Z37.0 Single live birth; Z3A.40 40 weeks gestation of pregnancy; O70.1 Second degree perineal laceration during delivery; O90.81 Anemia of the puerperium
CPT/HCPCS: 36415; 81000; 85025; 86850; 86900; 86901